=== PATIENT | male | born 2005 | race Two or more races ===

== ENCOUNTER 2025-08-05 18:53 | Emergency (ER) | payer OTHER ==
[~2025-08-05] VITALS: Ht 167.6 cm; Wt 63.6 kg
[2025-08-05 18:55] VITALS: BP 110/63; PULSE 83; RESP 16; TEMP 99.7; O2SAT 97
== END 2025-08-05 21:15 | disposition left against medical advice (07) ==
LOC: EMS 18:56
DX: F41.9 Anxiety disorder, unspecified (principal); Z53.21 Procedure and treatment not carried out due to patient leaving prior to being seen by health care provider
CPT/HCPCS: 99281; Z7502